=== PATIENT | female | born 1995 | race Caucasian/White ===

== ENCOUNTER 2016-09-26 21:27 | Emergency (ER) | payer BC ==
[~2016-09-26] VITALS: Ht 162.6 cm; Wt 54.9 kg
[2016-09-26 21:33] VITALS: Ht 162.6 cm; Wt 54.9 kg
[2016-09-26] MEDS ORDERED: ONDANSETRON INJ 2 MG/ML 2 ML VIAL IV STA (21:53)
[2016-09-26] MEDS ORDERED: OPTIRAY 320 IV PRN (22:00)
[2016-09-26] MEDS ORDERED: MoRPHine SULFATE 4 MG/ML 1 ML CARP\\VIAL IV ONE (22:00)
[2016-09-26] MEDS ORDERED: SODIUM CHLORIDE 0.9% 1000ML 1,000 ML IV ONE (22:00)
[2016-09-26] MEDS ORDERED: BCPILLS PO (22:02)
[2016-09-26] MEDS ORDERED: INHALER INH (22:02)
[2016-09-26 22:15] LABS: BASO % 0.2 %; BASO ABS # 0.02 K/uL (0-0.2); COMPLETE YES; EOS % 1.9 %; HEMATOCRIT 39.2 % (37-47); IG% 0.1 %; LYMPH % 27.2 %; MEAN CELL VOLUME 90.3 fL (80-100); MEAN CORPUSCULAR HEMOGLOBIN 30.6 pg (25-34); MEAN CORPUSCULAR HGB CONC 33.9 g/dl (32-36); MEAN PLATELET VOLUME 9.2 fL (7.4-10.4); NEUT % 61.6 %; PLATELET COUNT 311 K/uL (130-400); RED BLOOD COUNT 4.34 M/uL (4.2-5.4); WHITE BLOOD COUNT 8.09 K/uL (4.8-10.8)
[2016-09-26 22:28] LABS: URINE APPEARANCE CLEAR (CLEAR); URINE BILIRUBIN NEG (NEG); URINE COLOR YELLOW; URINE NITRITE NEG (NEG); URINE PH 7.5 (4.5-7.5); URINE SPECIFIC GRAVITY 1.019 (1.000-1.030); UROBILINOGEN NEG (NEG); ZZUR CULT IF INDIC CLEAN CATCH NO
[2016-09-26 22:32] LABS: MANUAL MICROSCOPIC REQUIRED? NO; REVIEW REQ? NO
[2016-09-26 22:33] LABS: BUN/CREATININE RATIO 15.2 (10-20); CALCIUM 8.7 mg/dl (8.5-10.1); CREATININE 0.82 mg/dl (0.60-1.20); POTASSIUM 3.9 mmol/L (3.5-5.1)
[2016-09-26 22:36] LABS: ALB/GLOB RATIO 1.1 (0.9-2)
--- NOTE | 2016-09-26 22:48 | DIAGNOSTIC IMAGING REPORT ---
EXAMINATION: PELVIC ULTRASOUND (transabdominal only) CLINICAL HISTORY: RLQ abd pain COMPARISON STUDY: None FINDINGS: The uterus measured 8.1 x 3.2 x 5.4 cm. The endometrial stripe measured 5 mm. The right ovary measured 34 x 23 x 25 mm. The left ovary measured 33 x 17 x 19 mm. There is no ultrasonographic evidence of ovarian torsion. It should be noted that ovarian torsion can be present with normal Doppler ultrasonographic findings. There was no evidence of pathologic free pelvic fluid. IMPRESSION: Normal pelvic ultrasound. Electronically signed by: Lew Caldera M.D. 09/26/2016 10:46 PM Dictated Date/Time: 09/26/2016 10:45 PM
[2016-09-26] MEDS ORDERED: MoRPHine SULFATE 2 MG/ML CARP ONE (22:53)
[2016-09-27] MEDS ORDERED: NORCO 5/325MG HOME PACK PO ONE (01:45)
[2016-09-27] MEDS ORDERED: ONDANSETRON HOME PACK 4MG OD TAB PO ONE (01:45)
[2016-09-27] MEDS ORDERED: HYDR-5688 PO (01:46)
[2016-09-27] MEDS ORDERED: ONDA4TAB10 SL (01:46)
[2016-09-27 02:01] VITALS: TEMP 36.9
[2016-09-27 02:02] VITALS: BP 110/71; PULSE 75; O2SAT 100
--- NOTE | 2016-09-27 03:56 | EMERGENCY ROOM VISIT NOTE ---
History First contact with patient: 21:42 Chief Complaint: ABDOMINAL PAIN Stated Complaint: RT SIDE ABD PAIN, NAUSEA-[facility] REFERRED Nursing Triage Summary: right sided abdominal pain for two days. with nausea no vomiting no fever History of Present Illness The patient is a 21 year old female who presents to the Emergency Room with complaints of right lower quadrant abdominal pain for the past 2 days. The patient is nauseated without vomiting. She does not have fever. The patient went to a local urgent care clinic and was referred to the ER for evaluation. She does have a previous history of cholecystectomy, but no other surgeries. She is on oral contraception and denies chance of . She has been eating, drinking, and using the bathroom is normal. Her discomfort worsens when pressing in the area. She rates her current discomfort a 6/10 at rest. She does not have other symptoms. Review of Systems More than 10 systems were reviewed and otherwise negative with the exception of history of present illness. Past Medical/Surgical History No reported chronic medical disease Family History No pertinent family history Social History Smoking Status: Never Smoker Occupation Status: [employer] student Current/Historical Medications Scheduled Control Pills ( Control Pills), 1 TAB PO DAILY Ondasetron Odt (Zofran Odt), 4 MG SL Q6H Scheduled PRN Hydrocodone/Acetaminophen 5MG/325MG ([place] 5MG/325MG), 1 TABLET PO Q6 PRN for Pain [Inhaler], 1-2 PUFF INH Q6-8HRS PRN for SOB/Wheezing Allergies Coded Allergies: No Known Allergies (Unverified , 09/26/16) Physical Exam Vital Signs Date Time Temp Pulse Resp B/P Pulse Ox O2 Delivery O2 Flow Rate FiO2 09/27/16 02:02 75 20 110/71 100 Room Air 09/27/16 02:01 36.9 71 20 108/77 100 09/26/16 23:06 71 20 108/77 100 Room Air 09/26/16 21:33 36.9 83 18 135/92 98 Room Air Pain Rating (0-10): 0 Physical Exam VITALS: Vitals are noted on the nurse's note and reviewed by myself. Vital signs stable. GENERAL: Well-developed, well-nourished, white female, who is in no acute distress and resting comfortably. Patient is cooperative with the examination. HEAD: Normocephalic atraumatic. HEART: Regular rate and rhythm without murmurs gallops or rubs. LUNGS: Clear to auscultation bilaterally without wheezes, rales or rhonchi. No retractions or accessory muscle use. ABDOMEN: Positive normal bowel sounds x 4. Soft with positive right lower quadrant tenderness on palpation. No rebound or guarding. No CVA tenderness. No peritoneal signs. MUSCULOSKELETAL: No muscle atrophy, erythema, or edema noted. Full range of motion without joint tenderness in all extremities. Medical Decision & Procedures ER Provider Diagnostic Interpretation: EXAMINATION: PELVIC ULTRASOUND (transabdominal only) CLINICAL HISTORY: RLQ abd pain COMPARISON STUDY: None FINDINGS: The uterus measured 8.1 x 3.2 x 5.4 cm. The endometrial stripe measured 5 mm. The right ovary measured 34 x 23 x 25 mm. The left ovary measured 33 x 17 x 19 mm. There is no ultrasonographic evidence of ovarian torsion. It should be noted that ovarian torsion can be present with normal Doppler ultrasonographic findings. There was no evidence of pathologic free pelvic fluid. IMPRESSION: Normal pelvic ultrasound. Preliminary Findings Only See Final Report For Complete Findings CT ABDOMEN & PELVIS: Terminal ileitis suspected. Consider infectious, inflammatory or ischemic etiologies. No abscess or perforation. No convincing evidence for appendicitis. No bowel obstruction. No other inflammatory changes of bowel. Evidence of prior cholecystectomy. No free air, free fluid or other acute disease. Laboratory Results 09/26/16 22:10 Red Blood Count 4.34, Mean Corpuscular Volume 90.3, Mean Corpuscular Hemoglobin 30.6, Mean Corpuscular Hemoglobin Concent 33.9, Mean Platelet Volume 9.2, Neutrophils (%) (Auto) 61.6, Lymphocytes (%) (Auto) 27.2, Monocytes (%) (Auto) 9.0, Eosinophils (%) (Auto) 1.9, Basophils (%) (Auto) 0.2, Neutrophils # (Auto) 4.98, Lymphocytes # (Auto) 2.20, Monocytes # (Auto) 0.73, Eosinophils # (Auto) 0.15, Basophils # (Auto) 0.02 09/26/16 22:10 Test 09/26/16 22:10 White Blood Count 8.09 K/uL (4.8-10.8) Red Blood Count 4.34 M/uL (4.2-5.4) Hemoglobin 13.3 g/dL (12.0-16.0) Hematocrit 39.2 % (37-47) Mean Corpuscular Volume 90.3 fL (80-100) Mean Corpuscular Hemoglobin 30.6 pg (25-34) Mean Corpuscular Hemoglobin Concent 33.9 g/dl (32-36) Platelet Count 311 K/uL (130-400) Mean Platelet Volume 9.2 fL (7.4-10.4) Neutrophils (%) (Auto) 61.6 % Lymphocytes (%) (Auto) 27.2 % Monocytes (%) (Auto) 9.0 % Eosinophils (%) (Auto) 1.9 % Basophils (%) (Auto) 0.2 % Neutrophils # (Auto) 4.98 K/uL (1.4-6.5) Lymphocytes # (Auto) 2.20 K/uL (1.2-3.4) Monocytes # (Auto) 0.73 K/uL (0.11-0.59) Eosinophils # (Auto) 0.15 K/uL (0-0.5) Basophils # (Auto) 0.02 K/uL (0-0.2) RDW Standard Deviation 39.6 fL (36.4-46.3) RDW Coefficient of Variation 12.0 % (11.5-14.5) Immature Granulocyte % (Auto) 0.1 % Immature Granulocyte # (Auto) 0.01 K/uL (0.00-0.02) Urine Color YELLOW Urine Appearance CLEAR (CLEAR) Urine pH 7.5 (4.5-7.5) Urine Specific [place] 1.019 (1.000-1.030) Urine Protein NEG (NEG) Urine Glucose (UA) NEG (NEG) Urine Ketones NEG (NEG) Urine Occult Blood NEG (NEG) Urine Nitrite NEG (NEG) Urine Bilirubin NEG (NEG) Urine Urobilinogen NEG (NEG) Urine Leukocyte Esterase NEG (NEG) Urine Test NEG (NEG) Anion Gap 6.0 mmol/L (3-11) Est Creatinine Clear Calc Drug Dose 94.6 ml/min Estimated GFR () 119.4 Estimated GFR (Non- 103.0 BUN/Creatinine Ratio 15.2 (10-20) Calcium Level 8.7 mg/dl (8.5-10.1) Total Bilirubin 0.3 mg/dl (0.2-1) Aspartate Amino Transf (AST/SGOT) 19 U/L (15-37) Alanine Aminotransferase (ALT/SGPT) 19 U/L (12-78) Alkaline Phosphatase 55 U/L (45-117) Total Protein 6.8 gm/dl (6.4-8.2) Albumin 3.5 gm/dl (3.4-5.0) Globulin 3.3 gm/dl (2.5-4.0) Albumin/Globulin Ratio 1.1 (0.9-2) Medications Administered Medications (Trade) Dose Ordered Sig/Yossi Route Start Time Stop Time Status Last Admin Dose Admin Sodium Chloride (Nss 1000ml) 1,000 ml @ 999 mls/hr Q1H1M ONCE IV 09/26/16 22:00 09/26/16 23:00 DC 09/26/16 22:59 999 MLS/HR Ondansetron HCl (Zofran Inj) 4 mg NOW STAT IV 09/26/16 21:53 09/26/16 21:55 DC 09/26/16 22:59 4 MG ED Course Physical exam and history were performed. Nursing notes and EMR were reviewed. Patient appears to have right lower quadrant abdominal pain for the past 2 days. She is palpably tender in the right lower quadrant. IV access was established and labs were obtained. The patient was hydrated and medicated as above. Because of her symptoms I did elect to perform an ultrasound and CT scan. The patient's blood work is as above and was reviewed. She does not have a significantly elevated white blood cell count, anemia, bandemia, or gross electrolyte imbalance. Lipase and transaminases are nondiagnostic. Urine is without obvious signs of infection. Ultrasound does not show ILLUSTRATOR SET etiology of her symptoms. CT scan did return as being highly suspicious of return of lightheadedness. The patient does not appear to have acute appendicitis based on the CT reading. I discussed case with my attending physician, Dr. Fregoso, and we feel the patient is stable for discharge home provided that she have close outpatient follow-up. The patient does not have a history of ulcerative colitis or Crohn' s disease, but she does state that her brother has a history of Crohn's disease. Because of this I feel it is important the patient be seen by GI in the next few days. I did engage case management regarding this patient, and they will try to facilitate an appointment when the office opens in around 6 hours. The patient was pleased with this plan of voice understanding. She will be given a short supply of Vicodin and Zofran for her symptoms. She was otherwise invited back to the ER with any new, worsening, or concerning episodes. The chart was completed utilizing [employer] Speech Voice Recognition Software. Grammatical errors, random word insertions, pronoun errors, and incomplete sentences are an occasional consequence of this system due to software limitations, ambient noise, and hardware issues. Any formal questions or concerns about the content, text, or information contained within the body of this dictation should be directly addressed to the provider for clarification. . Medical Decision Differential diagnosis: Etiologies such as appendicitis, diverticulitis, PUD, biliary pathology, UTI, pancreatitis, obstruction, mesenteric ischemia, aortic pathology, infections, inflammatory bowel disease, renal colic, as well as others were entertained. Impression Primary Impression: Terminal ileitis Departure Information Dispostion Home / Self-Care Condition GOOD Prescriptions Hydrocodone/Acetaminophen 5MG/325MG ([place] 5MG/325MG) Tab 1 TABLET PO Q6 Y for Pain, #12 TAB For Initial Treatment Prov: Omer Neville PA-C 09/27/16 Ondasetron Odt (ZOFRAN ODT) 4 Mg Tab 4 MG SL Q6H for Nausea, #12 TAB Prov: Omer Neville PA-C 09/27/16 Referrals Dennys, Jaxson Blum D.O. Forms HOME CARE DOCUMENTATION FORM, IMPORTANT VISIT INFORMATION Patient Instructions My [facility] Additional Instructions You were seen and evaluated today on an emergency basis only. This is not a substitute for, or an effort to provide, complete comprehensive medical care. It is not possible to recognize and treat all injuries or illnesses in a single emergency department visit. For this reason it is recommended that you followup with Gastroenterology as soon as reasonably possible for ongoing care and evaluation. Case management from the ER will call you in the morning to help schedule your appointment. [place] (hydrocodone/acetaminophen) 5/325 mg every 6 hours as needed for worsening breakthrough pain. Do not drink or drive on [place]. This medication will likely make you tired. Do not take [place] and Tylenol at the same time as both contain acetaminophen. [place] may cause constipation. You may wish to take an [id number] stool softener like Colace if this occurs. Zofran 1 tablet every 6 hrs as needed for nausea. You are welcome to return to the emergency department anytime with new, worsening, or concerning symptoms.
--- NOTE | 2016-09-27 07:14 | DIAGNOSTIC IMAGING REPORT ---
ABDOMEN AND PELVIS CT WITH IV AND ORAL CONTRAST CT DOSE: 271.66 mGy.cm HISTORY: Pain RLQ abd pain TECHNIQUE: Multiaxial CT images of the abdomen and pelvis were performed following the use of intravenous and oral contrast. COMPARISON STUDY: None. FINDINGS: Lung bases are clear. Liver spleen and pancreas are unremarkable. Cholecystectomy. Kidneys enhance uniformly. Bowel pattern is nonobstructive. Bladder is midline. Uterus is anteflexed. IMPRESSION: No acute process Electronically signed by: Vlad Loja M.D. 09/27/2016 7:13 AM Dictated Date/Time: 09/27/2016 7:08 AM
== END 2016-09-27 02:01 | disposition home or self-care (01) ==
LOC: C.EDB 21:30
DX: K50.00 Crohn's disease of small intestine without complications (principal)

== ENCOUNTER → 2016-09-29 | Outpatient (CLI) | payer BC ==
[~2016-09-29] MED LIST: BCPILLS PO; HYDR-5688 PO; INHALER INH; ONDA4TAB10 SL
== END | disposition home or self-care (01) ==
LOC: C.LAB 13:02
PROVIDERS: ATTEND Registered Nurse
DX: R10.31 Right lower quadrant pain (principal); R19.7 Diarrhea, unspecified; R93.5 Abnormal findings on diagnostic imaging of other abdominal regions, including retroperitoneum